=== PATIENT | male | born 1985 | race Caucasian/White ===

== ENCOUNTER 2018-09-12 00:49 | Inpatient (IN) ==
[2018-09-12] MEDS ORDERED: PROTONIX IV ONE (01:12)
[2018-09-12] MEDS ORDERED: SODIUM CHLORIDE 0.9% INJ ONE (01:12)
[2018-09-12] MEDS ORDERED: ZOFRAN IV ONE (01:12)
[2018-09-12 01:46] LABS: BASO# 0.06 X1000 (0.0-0.2); BASO% 1.2 % (0.0-0.8); EOS# 0.27 X1000 (0.0-0.7); EOS% 5.5 % (0.0-10.0); HEMATOCRIT 50.3 % (42.0-52.0); HEMOGLOBIN 16.2 g/dL (14.0-18.0); LYMPH# 1.13 X1000 (1.2-3.4); MCHC 32.2 g/dL (33-37); MCV 90.1 FL (81-99); MONO# 0.55 X1000 (0.11-0.59); MONO% 11.2 % (1.7-9.3); MPV 10.9 FL (7.4-10.4); NEUT% 59.1 % (42.2-75.2); PLT 199 X1000 (130-400); RBC 5.58 XMIL (4.7-6.1); RDW 13.1 % (11.5-14.5); WBC 4.91 X1000 (4.8-10.8)
[2018-09-12 01:55] LABS: INR 0.91
[2018-09-12 01:56] LABS: PTT 27.6 Seconds (22.3-41.8)
[2018-09-12 02:00] LABS: AGAP 10; ALB/GLOB RATIO 2.2; ALBUMIN 4.2 g/dL (3.5-5.0); ALKALINE PHOSPHATASE 72 U/L (32-122); BUN 11 mg/dL (8-22); CALCIUM 9.3 mg/dL (8.8-10.2); CHLORIDE 106 mmol/L (98-107); COSMO 282; CREATININE 0.6 mg/dL (0.7-1.2); ESTIMATED GFR > 60; GLUCOSE 91 mg/dL (70-104); GOT 49 U/L (10-34); GPT 58 U/L (10-44); POTASSIUM 4.4 mmol/L (3.5-5.1); SODIUM 142 mmol/L (136-145); TCO2 26 mmol/L (25-35); TOTAL BILIRUBIN 0.53 mg/dL (0.20-1.00); TOTAL PROTEIN 6.1 g/dL (6.3-8.3)
[2018-09-12] MEDS: NS 1,000 ML IV SCH ×3 (02:30→16:33)
--- NOTE | 2018-09-12 07:23 | EKG Report ---
Test Performed on : 09/12/2018 07:05:28 AM Test Reason : Syncope Blood Pressure : / mmHG Vent. Rate : 065 BPM Atrial Rate : 065 BPM P-R Int : 148 ms QRS Dur : 092 ms QT Int : 398 ms P-R-T Axes : -04 026 029 degrees QTc Int : 413 ms Normal sinus rhythm. Normal ECG No previous ECGs available Unconfirmed Result
--- NOTE | 2018-09-12 07:38 | Diag Imaging Result Doc PS360 ---
EXAM: CT ABD/PELVIS W/IV CONT ONLY INDICATION: RUQ pain TECHNIQUE: This exam was performed using automated exposure control, adjustment of mA or kV according to patient size, and/or use of iterative reconstruction technique. COMPARISON: None. FINDINGS: The gallbladder is contracted and is unremarkable, otherwise. The liver, spleen, pancreas, and adrenal glands are unremarkable. There is a punctate nonobstructive intrarenal stone on the right. The kidneys are essentially unremarkable, otherwise. There is no hydronephrosis. The urinary bladder is unremarkable. There is no evidence of appendicitis. The remainder of the GI tract is grossly unremarkable. No focal inflammatory changes, free abdominal gas, or free fluid is identified. The bony structures are intact. IMPRESSION: No evidence of acute pathology by CT. Electronically signed by Kirit Weeks 09/12/2018 7:35 AM
[2018-09-12 07:39] LABS: MAGNESIUM 2.1 mg/dL (1.5-2.7)
--- NOTE | 2018-09-12 08:05 | HISTORY AND PHYSICAL ---
CHIEF COMPLAINT: Hematemesis and melena. HISTORY OF PRESENT ILLNESS: Mr. Brizuela is a 32-year-old male who presents to the ER tonight with reports of right upper quadrant pain with a 1 to 2-day history of hematemesis and melena. The patient states that he has been vomiting up what initially was emesis with a food appearance that did have some light-colored blood mixed in, though the patient now states that he has been having coffee-grounds emesis. He also reports that he has been having sharp intermittent right upper quadrant pain, and has been having now reports of dark black stools. He is currently incarcerated and is an inmate at [facility]. This evening, the patient was found by another inmate in the bathroom. One of the guards that responded to the patient is present at the bedside at this time, Officer Emma. He reported that the patient was completely unresponsive, and was confused once he did start to come back around. The patient does not have any recollection of the period before he was found unresponsive, and does have some confusion about what happened immediately after. At this time, he is alert and oriented to person, place, time, and situation, though he does seem slightly drowsy, and the patient states he feels like he is not his normal self and that he is drowsy, though he is denying any dizziness or headache. He denies any chest pain, shortness of breath, dysuria, or urinary frequency. The patient states he did have some hematuria though earlier today. He denies any pain, numbness, tingling, or swelling in extremities. Upon evaluation in the ER, the patient's hemoglobin and hematocrit are stable at this time. His chemistries were pretty unremarkable. He did have some slight elevation in his AST and ALT. CT abdomen and pelvis was performed, which did show that he had a moderate amount of stool in the colon, though other than this, there did not appear to be any acute findings. Also, the patient was just admitted and discharged from [facility]. It looks as though he was admitted on 09/04/2018 and was discharged on 09/05/2018. He did have a presenting complaint of left upper quadrant pain, with reports of nausea and vomiting bright red blood. He was admitted. He did undergo an EGD with Dr. Escobedo, and was noted to have findings of a Margo- Helm tear. It looked as though they did clip the tear. The patient was able to resume a regular diet, and was discharged with a month-long supply of Protonix 20 mg daily. The patient states that he had been doing well up until his symptoms started approximately 1 to 2 days ago as mentioned above. The patient denied any cftj-zil-[id number] use of nonsteroidal anti-inflammatories. REVIEW OF SYSTEMS: A 14-point review of systems was conducted with the patient, and all were negative, except for the pertinent positives mentioned in the above HPI. PAST MEDICAL HISTORY: Recent upper gastrointestinal bleed secondary to a Margo-Helm tear. PAST SURGICAL HISTORY: Other than his recent EGD, the patient denies any previous surgical history. SOCIAL HISTORY: The patient denies any tobacco, alcohol, or illicit drug use. At this time, he is currently incarcerated and is an inmate at [facility]. FAMILY HISTORY: The patient reports no significant family medical history. ALLERGIES: The patient has no known allergies. HOME MEDICATIONS: The patient denies any kfxx-psg-lqfbxuv or prescription medicines, other than his recently prescribed Protonix 20 mg daily p.o. that he received from [facility] upon discharge. LABORATORY AND DIAGNOSTIC DATA: White blood cell count is 4.91, hemoglobin 16.2, hematocrit 50.3, platelet count is 199,000. PT 13, INR 0.91, PTT is 27.6. Sodium 142, potassium 4.4, chloride 106, serum bicarb is 26, BUN 11, creatinine 0.6, glucose 91, calcium 9.3. Total bilirubin is 0.53, AST 49, ALT 58. CT abdomen and pelvis did show that the gallbladder was partially contracted. There was nonobstructive right renal stone. There was noted to be a moderate amount of stool in the colon, though other than this, there were no acute findings. This is per Radiology. Pending diagnostic studies at this time are a CT of the head without contrast, EKG, troponin, CK profile, magnesium, occult blood stool and non-feces, urinalysis, and urine drug screen. PHYSICAL EXAMINATION: VITAL SIGNS: Temperature 97.9 degrees, heart rate 66, respirations 16, blood pressure is 107/87, oxygen saturation is 98% on room air. GENERAL: Mr. Brizuela is a pleasant, 32-year-old, male, who was resting in the ER stretcher. He was in no acute distress. He was alert and oriented to person, place, time, and situation. He is able to answer questions appropriately. The patient did seem drowsy at times during my examination, though was easily arousable with verbal stimulation. HEENT: Head is atraumatic, normocephalic. Pupils are equal, round, reactive to light, and were 3 mm bilaterally and brisk. Oral mucosa is moist. Oropharynx is clear. NECK: Supple. Trachea midline. CARDIOVASCULAR: The patient has normal S1, S2. No murmurs, gallops, rubs appreciated with a regular rate and rhythm. PULMONARY: The patient has symmetrical chest expansion bilaterally. Lung sounds are clear to auscultation in bilateral full moreno. ABDOMEN: Soft, nondistended, though the patient does report tenderness upon palpation of his abdomen in the right upper quadrant area. Bowel sounds were present in all 4 quadrants and were normoactive. EXTREMITIES: No cyanosis, clubbing, or edema noted. Pulse, motor, and sensory were intact in all extremities. Radial pulses and pedal pulses were 2+ bilaterally. INTEGUMENTARY: The patient's skin is pink, warm, and dry. NEUROLOGICAL: The patient is alert and oriented to person, place, time, and situation. He is able to move all extremities. There are no focal neurological deficits noted. ASSESSMENT AND PLAN: 1. Gastrointestinal bleed. Given the patient's recent history of a Margo-Helm tear, we will place the patient nothing by mouth. We have placed him with Protonix 40 mg intravenously every 12 hours. We will repeat hemoglobin and hematocrit later on in the day. Will do frequent vital signs. We will continue with cardiac telemetry. At this time, the patient's vital signs are within normal limits and he is hemodynamically stable. We have placed a consult with Dr. Morales with Gastroenterology, and will await his evaluation and further recommendations for management. We have placed the records from [facility] on the patient's chart. They are available for viewing if needed. 2. Nausea and vomiting. We have placed some as needed antiemetics. We will continue with some gentle fluid hydration with normal saline at 125 mL/h. 3. Syncope. This may be related to the patient's gastrointestinal bleed. According to the officer who is at bedside with the patient, the patient was found unresponsive on the floor in the bathroom, and had vomited a large amount of bloody-appearing emesis that they were describing as coffee-ground with some maroonish color blood mixed in. The patient's vital signs are within normal limits, he is hemodynamically stable, and his hemoglobin hematocrit are stable at this time as well. It is unknown at this time if the patient hit his head. The patient does seem slightly drowsy, and he is reporting that he feels drowsy himself. We have placed orders for a CT head without contrast, as well as an electrocardiogram and cardiac enzymes. We will await those results and continue to follow. The patient, at this time, is not reporting any other neurological symptoms. He is able to move all extremities. He denies any numbness or tingling in extremities. 4. Deep vein thrombosis prophylaxis will be provided with sequential compression devices. The patient has been placed on the medical floor with telemetry. He will have vital signs every 4 hours. Will do strict intake and output. He will be nothing by mouth until evaluated by Gastroenterology. We are awaiting the results of several diagnostic studies as mentioned above. We will continue to follow. Further orders and recommendations pending hospital course, diagnostic studies, and physician evaluation. Dictated by MANISH Jimenez for Freeman Callahan MD cc: Freeman Callahan MD
--- NOTE | 2018-09-12 08:10 | Diag Imaging Result Doc PS360 ---
EXAM: CT HEAD W/O CONTRAST INDICATION: Syncope TECHNIQUE: This exam was performed using automated exposure control, adjustment of mA or kV according to patient size, and/or use of iterative reconstruction technique. COMPARISON: None. FINDINGS: There is no definite acute infarct given the limited sensitivity of CT versus MRI. There is no discrete intracranial mass, mass effect, or intracranial hemorrhage. The surrounding soft tissues and bony structures are essentially unremarkable. IMPRESSION: No evidence of acute intracranial pathology. Electronically signed by Kirit Weeks 09/12/2018 8:08 AM
[2018-09-12 12:09] LABS: URINE SOURCE CLEAN CATCH
[2018-09-12 12:33] LABS: UR AMPHETAMINES QUAL NONE DETECTED (NONE DETECT); UR BARBITUATES QUAL NONE DETECTED (NONE DETECT); UR BENZODIAZEPIN QUAL NONE DETECTED (NONE DETECT); UR CANNABINOIDS QUAL NONE DETECTED (NONE DETECT); UR COCAINE QUAL NONE DETECTED (NONE DETECT); UR METHADONE QUAL NONE DETECTED (NONE DETECT); UR OPIATES QUAL NONE DETECTED (NONE DETECT); UR OXYCODONE QUAL NONE DETECTED (NONE DETECT); UR PCP QUAL NONE DETECTED (NONE DETECT)
[2018-09-12 12:53] LABS: BILIRUBIN URINE NEGATIVE (NEGATIVE); BLOOD URINE NEGATIVE (NEGATIVE); COLOR STRAW; GLUCOSE URINE NEGATIVE (NEGATIVE); KETONE URINE NEGATIVE (NEGATIVE); LEUKOCYTES URINE NEGATIVE (NEGATIVE); NITRITE URINE NEGATIVE (NEGATIVE); PROTEIN URINE NEGATIVE (NEGATIVE); TURBIDITY URINE CLEAR (CLEAR); UROBILINOGEN URINE NORMAL (NORMAL)
[2018-09-12 12:54] LABS: UR EPITHELIAL CELLS <10 /HPF (<10); URINE BACTERIA NEGATIVE /HPF; URINE RBC <10 /HPF (<10); URINE WBC <10 /HPF (<10)
[2018-09-12 13:53] LABS: HEMATOCRIT 47.7 % (42.0-52.0); HEMOGLOBIN 15.3 g/dL (14.0-18.0)
[2018-09-12] MEDS: PROTONIX IV SCH (14:44)
[2018-09-12] MEDS: SODIUM CHLORIDE 0.9% INJ SCH (14:44)
--- NOTE | 2018-09-12 15:53 | GASTROENTEROLOGY CONSULTATION ---
DATE: 09/12/2018 REASON FOR CONSULTATION: Hematemesis. HISTORY OF PRESENT ILLNESS: Mr. Edwin Brizuela is a 32-year-old gentleman who is incarcerated and presented with episode of hematemesis. The patient reports waking up yesterday morning and feeling upset to his stomach. He says that he drank a Coke and subsequently started having vomiting that was initially nonbloody, nonbilious, and then became progressively red with coffee-grounds. He had a similar episode about a week ago, for which he was hospitalized in [facility]. There, he had a diagnostic EGD which was revealing for a Margo-Helm tear status post Endoclip. He was discharged on a 1-month supply of Protonix. The patient reports having reflux symptoms for which he does not take medications. He denies any dysphagia, abdominal pain, melena, hematochezia, change in bowel habits, family history of GI malignancies. He says that over the last week he has been taking ibuprofen once a day for chronic headaches. No other blood thinners. He denies any ingestions of foreign bodies. Per report, the patient had apparently a syncopal episode and was found by another inmate in the bathroom. REVIEW OF SYSTEMS: As per HPI, otherwise a 12 point review of systems is negative. PAST MEDICAL HISTORY: History of upper GI bleed from Margo-Helm tear. PAST SURGICAL HISTORY: None. SOCIAL HISTORY: No alcohol, smoking, or drug use at this time. He is currently incarcerated and is an inmate at [facility]. FAMILY HISTORY: No family history of GI malignancies or bleeding. ALLERGIES: No known drug allergies. HOME MEDICATIONS: Protonix, ibuprofen. DIAGNOSTIC STUDIES: White count of 4.9, hemoglobin of 16.2 that dropped to 15.3 with IV fluids, platelets of 199,000. INR of 0.91. Sodium 142, potassium 4.4, chloride of 106, bicarbonate 26, BUN 11, creatinine 0.6. LFTs notable for AST of 49, AST of 58, alkaline phosphatase 72. UA is negative. Urine toxicology is negative. CT of the abdomen and pelvis is normal. Head CT is also normal. PHYSICAL EXAMINATION: Vital Signs: Temperature 97.9 degrees, pulse 68, blood pressure 112/69, O2 saturation 99% on room air. General: The patient is awake, alert, oriented. No acute distress. HEENT: Sclerae anicteric. Moist mucous membranes. Extraocular motor intact. Neck: No JVD, no lymphadenopathy. Cardiac: Regular rate and rhythm. No murmurs, rubs, or gallops. Lungs: Clear to auscultation bilaterally. Abdomen: Soft, nontender, nondistended. Normoactive bowel sounds. No rebound or guarding. Extremities: No clubbing, cyanosis, or edema. Neurologic: Nonfocal. Cranial nerves 2 through 12 intact. ASSESSMENT AND PLAN: Mr. Edwin Brizuela is a 32-year-old gentleman with recent admission at outside hospital for upper gastrointestinal (GI) bleed secondary to Margo-Helm tear, who re- presents with hematemesis after episode of retching again. He also had a syncopal event from unclear etiology. His hemoglobin here is normal and has dropped from 16 to 15. Coagulation studies and platelets are within normal limits. He does admit to taking some non-steroidal antiinflammatory drugs (NSAIDs) recently, which may have aggravated his symptoms. At this time I recommend that we continue him on PPI which is currently IV twice daily. This can be transitioned to p.o. twice a day. Advance diet as tolerated. No indication for repeat EGD at this time. We will check hemoglobin and hematocrit in the morning. Avoid NSAIDs. Thank you for this consult. We will follow with you.
--- NOTE | 2018-09-12 16:45 | PROGRESS NOTE ---
DATE: 09/12/2018 The patient presents to the hospital because of hematemesis as well as melena. Vitals reasonably stable. Hematocrit is 50.3 at the time of his presentation. Plan is to maintain patient on PPI and get GI evaluation for GI endoscopic studies. cc: Delio Chicas MD
[2018-09-12] MEDS: ZOFRAN IV PRN (22:48)
[2018-09-13] MEDS: NORCO-7.5 PO PRN ×3 (01:41→21:53)
[2018-09-13] MEDS: SODIUM CHLORIDE 0.9% INJ SCH (01:41)
[2018-09-13] MEDS: PROTONIX IV SCH ×2 (01:41→15:34)
[2018-09-13] MEDS: NS 1,000 ML IV SCH ×3 (01:45→18:37)
[2018-09-13] MEDS: AUGMENTIN PO SCH ×3 (03:24→21:53)
[2018-09-13 06:51] LABS: BASO# 0.02 X1000 (0.0-0.2); BASO% 0.4 % (0.0-0.8); EOS# 0.22 X1000 (0.0-0.7); EOS% 4.3 % (0.0-10.0); HEMATOCRIT 49.2 % (42.0-52.0); HEMOGLOBIN 15.6 g/dL (14.0-18.0); LYMPH# 1.41 X1000 (1.2-3.4); LYMPH% 27.3 % (20.5-51.1); MCH 29.5 PG (27-31); MCHC 31.7 g/dL (33-37); MCV 93.2 FL (81-99); MONO# 0.61 X1000 (0.11-0.59); MONO% 11.8 % (1.7-9.3); MPV 10.8 FL (7.4-10.4); NEUT% 56.2 % (42.2-75.2); PLT 165 X1000 (130-400); RBC 5.28 XMIL (4.7-6.1); RDW 12.9 % (11.5-14.5); WBC 5.16 X1000 (4.8-10.8)
[2018-09-13 07:27] LABS: AGAP 8; BUN 11 mg/dL (8-22); CALCIUM 8.4 mg/dL (8.8-10.2); CHLORIDE 105 mmol/L (98-107); COSMO 285; CREATININE 0.8 mg/dL (0.7-1.2); ESTIMATED GFR > 60; GLUCOSE 112 mg/dL (70-104); POTASSIUM 3.9 mmol/L (3.5-5.1); SODIUM 143 mmol/L (136-145); TCO2 30 mmol/L (25-35)
[2018-09-13] MEDS ORDERED: ATIVAN IV ONE (12:55)
[2018-09-13] MEDS ORDERED: ATIVAN IV PRN (12:56)
[2018-09-13] MEDS ORDERED: DILANTIN 1,000 MG in NS 100 ML IV ONE (13:30)
--- NOTE | 2018-09-13 14:51 | Diag Imaging Result Doc PS360 ---
EXAM: CT HEAD W/O CONTRAST INDICATION: seizure TECHNIQUE: This exam was performed using automated exposure control, adjustment of mA or kV according to patient size, and/or use of iterative reconstruction technique. COMPARISON: 09/12/2018 FINDINGS: There is no definite acute infarct given the limited sensitivity of CT versus MRI. There is no discrete intracranial mass, mass effect, or intracranial hemorrhage. The surrounding soft tissues and bony structures are essentially unremarkable. IMPRESSION: No evidence of acute intracranial pathology. Electronically signed by Kirit Weeks 09/13/2018 2:48 PM
--- NOTE | 2018-09-13 14:54 | CONSULTATION ---
DATE OF CONSULTATION: 09/13/2018 He is in the emergency department, bed #6. Mr. Brizuela is 32 years old and he had a recent episode raising question of seizure or other neurologic event. Firsthand history from patient to me now is that he has no recollection of these events. He reports being in hospital bed upstairs and next realizing he was in the emergency room sometime later. He reports no previous history of seizure, stroke, concussion, brain injury. He reports falling and striking his head on the floor, associated with lightheadedness around the time he initially presented with melena and hematemesis a day or two ago. He reports no family history of seizure. He denies ethanol use. He denies illicit drug use. After the episode, he received lorazepam 2 mg IV once and phenytoin 1000 mg IV. Workup this admission includes noncontrast CT of the head done yesterday showing no abnormality. Lab is unremarkable except for mildly elevated AST and ALT. Urine drug screen was all negative yesterday. He has been afebrile. Heart rate has ranged 60s to 90s. Systolic blood pressures have ranged 100s to 120s. On exam, Mr. Brizuela is awake, alert, attentive. He seems appropriate now. Speech is not dysarthric. Language function is intact. Head and neck are unremarkable. There is no meningismus. There is no evidence of tongue bruising or biting. Visual moreno are full tested by confrontational finger counting. Extraocular movements are full. Facial motility is normal and symmetric. Gag is intact. Tongue is midline. He can hear. Shoulder shrug is equal. Strength is normal in the arms and legs. Tone is symmetric in the limbs. He did well on kvnvdt-nv-gukl testing bilaterally. He reports equal pinprick appreciation on brief testing over the limbs. I did not test his gait. IMPRESSION: Recent episode, uncertain explanation. By report, the postictal state was brief and minimal. The rigidity, as described by witnesses, was not completely typical of a true tonic seizure. If this was a seizure, explanation is not clear. I do not see any obvious toxic, withdrawal, or metabolic explanation for seizure. Seizure might occur early in the course of recovery from head injury but the head injury described does not seem sufficient to be worrisome for acute seizure. PLAN: I will order EEG and follow with you. I do not have any urgent suggestion. If he is otherwise ready for discharge, I can see him as an outpatient in the office soon. Thanks for asking neurology to see Mr. Brizuela. cc: MD NELLY Ley III
--- NOTE | 2018-09-13 14:56 | DISCHARGE SUMMARY ---
ADMISSION DATE: 09/12/2018 DISCHARGE DATE: 09/13/2018 PRINCIPAL DIAGNOSIS: Gastrointestinal bleed, probably secondary to Margo-Helm tear. SECONDARY DIAGNOSIS: Abnormal liver function test. CONSULTATIONS DONE DURING THIS HOSPITAL STAY: Dr. Emir Low. Gastroenterology. PROCEDURES DONE DURING THIS HOSPITAL STAY: 1. Abdominal pelvic CT 09/12/2018. 2. Head CT 09/12/2018. HOSPITAL COURSE: Mr. Edwin Brizuela is a 32 -year-old male who presented to the hospital because of right upper quadrant abdominal pain for about 1 to 2 days with a 1 to 2 -day history of hematemesis as well as melena. The patient was seen by the GI team. Apparently patient had been diagnosed with a Margo-Helm tear previously. The GI team did not feel compelled to repeat another EGD at this time. The patient remained stable while in the hospital. His hematocrit actually improved from 47.7 to 49.2. At his time patient can be discharged back. PHYSICAL EXAMINATION: Vital signs today: Temperature 98 degrees, pulse 75, respiratory rate 20, blood pressure 122/73, oxygen 99%. HEENT: Atraumatic, normocephalic. Cardiovascular: S1, S2. Respiratory system: Has evidence of good air entry bilaterally. Abdomen: Soft, nontender. No masses. Extremities: No evidence of edema. Central nervous system: No obvious focal deficit. PLAN: 1. Discharge back to correctional institution. 2. Take discharge medications as indicated. 3. The patient will be on omeprazole 40 mg p.o. once a day. cc: Delio Chicas MD
--- NOTE | 2018-09-13 16:24 | PROVIDER PROGRESS NOTE ---
Progress Note SUBJECTIVE: No acute overnight events. Afebrile. No N/V, CP, SOB. Patient reports having some some bleeding from right ear. No headache, abdominal pain. Tolerating PO. No melena or rectal bleeding. OBJECTIVE: Last Vital Signs Temp 98.0 F 09/13/18 15:17 Pulse 104 H 09/13/18 15:17 Resp 16 09/13/18 15:17 BP 98/76 09/13/18 15:17 Pulse Ox 100 09/13/18 15:17 Height 5 ft 11 in Weight 196 lb GEN: awake, alert, NAD HEENT: anicteric, MMM CV: RRR, no murg PULM: CTAB ABD: soft NT/ND, NABS EXT: no cce NEURO: CNII-XII grossly intact LABS: 09/13/18 09/13/18 06:15 06:15 WBC 5.16 Hgb 15.6 Plt Count 165 Sodium 143 Potassium 3.9 Chloride 105 Carbon Dioxide 30 BUN 11 Creatinine 0.8 Glucose 112 H Calcium 8.4 L A/P: Mr. Edwin Brizuela is a 32-year-old gentleman with recent admission at outside hospital for upper gastrointestinal (GI) bleed secondary to Margo- Helm tear, who re- presented with hematemesis after episode of retching. He also had a syncopal event from unclear etiology. His hemoglobin here is normal and unchanged. His is tolerating diet without GI symptoms. # Hematemesis: hgb stable; continue PPI BID for 8-12 weeks; avoid NSAIDs/blood thinners # Syncope: unclear etiology; HCT negative; Utox neg; defer workup to primary team # Ear bleeding: reported ruptured eardrum per report; ear examined by overnight provider; defer to primary team # Mildly elevated LFTs on admission: recheck LFTs; CT A/P negative; obtain hepatitis panel Will sign off. Please call with questions or concerns.
[2018-09-14] MEDS: SODIUM CHLORIDE 0.9% INJ SCH (01:48)
[2018-09-14] MEDS: PROTONIX IV SCH ×2 (01:48→16:30)
[2018-09-14] MEDS: NORCO-7.5 PO PRN ×3 (04:06→19:42)
[2018-09-14] MEDS ORDERED: PRILOSEC PO SCH (07:00)
[2018-09-14] MEDS: NS 1,000 ML IV SCH ×3 (09:00→20:05)
[2018-09-14] MEDS: AUGMENTIN PO SCH ×3 (09:00→20:05)
[2018-09-14] MEDS: ZOFRAN IV PRN (09:13)
--- NOTE | 2018-09-14 10:00 | PROGRESS NOTE ---
DATE: 09/14/2018 Mr. Brizuela has not had any more episodes of seizure or seizure-like activity. He continues to complain of earache. We have EEG scheduled. Further plans will depend on that report. Officer present today was present and witnessed his episode yesterday. Firsthand description is rigidity and tremulousness but not definite clonic activity. As reported yesterday, postictal state was minimal. His posture during the episode was also not typical. I do not have any new thoughts right now. Further plans will depend on the EEG report. If this was a seizure, some features are atypical. Thanks for asking neurology to see Mr. Brizuela. cc: Narinder Cerda III, MD
[2018-09-14 13:21] LABS: HEPATITIS PROFILE ACUTE SEE COMMENTS
--- NOTE | 2018-09-14 14:44 | EKG Report ---
Test Performed on : 09/14/2018 2:38:59 PM Test Reason : increased heart rate Blood Pressure : / mmHG Vent. Rate : 138 BPM Atrial Rate : 138 BPM P-R Int : 140 ms QRS Dur : 080 ms QT Int : 286 ms P-R-T Axes : 063 019 042 degrees QTc Int : 433 ms Sinus tachycardia. Cannot rule out Anterior infarct , age undetermined Abnormal ECG When compared with ECG of 12-SEP-2018 07:05, Vent. rate has increased BY [address] no longer elevated in Inferior leads Unconfirmed Result
[2018-09-14] MEDS ORDERED: CARDIZEM 125/NS 125 MG/125 ML IVPB IV SCH (15:30)
--- NOTE | 2018-09-14 15:50 | PROGRESS NOTE ---
DATE: 09/14/2018 SUBJECTIVE: The patient resting in bed. Complains of some chest discomfort. OBJECTIVE: Vital Signs: As follows: Temperature is 98.1, pulse 79, respirations 18, blood pressure 126/76, oxygenation is 100%. HEENT: Atraumatic, normocephalic. Cardiovascular: S1, S2. Tachycardic. Respiratory: Good air entry bilaterally. Abdomen: Soft, nontender. No masses felt. Extremities: No evidence of edema. Central Nervous System: No obvious focal deficits noted. LABS: None today. ASSESSMENT AND PLAN: 1. Probable seizure disorder. Continue Dilantin 100 mg IV q.8 hours. Follow up on EEG report. Neurology is following. The patient may have pseudoseizures. 2. Tachyarrhythmia. Maintain patient on cardiac monitoring. Check cardiac enzymes as well as a D-dimer level. Place patient on rate controlling agents. Consult with Cardiology. 3. Bleeding from right ear. This may have been self-inflicted. ENT consulted. 4. Gastrointestinal bleed, stable. Follow up on hemoglobin, hematocrit. Maintain patient on PPI. Avoid nonsteroid anti-inflammatory drugs. 5. Hepatitis C virus infection. This has just been newly diagnosed. The patient will need to follow up with GI in the outpatient. cc: Delio Chicas MD
[2018-09-14 16:16] LABS: UR AMPHETAMINES QUAL NONE DETECTED (NONE DETECT); UR BARBITUATES QUAL NONE DETECTED (NONE DETECT); UR BENZODIAZEPIN QUAL NONE DETECTED (NONE DETECT); UR CANNABINOIDS QUAL NONE DETECTED (NONE DETECT); UR COCAINE QUAL NONE DETECTED (NONE DETECT); UR METHADONE QUAL NONE DETECTED (NONE DETECT); UR OPIATES QUAL NONE DETECTED (NONE DETECT); UR OXYCODONE QUAL NONE DETECTED (NONE DETECT); UR PCP QUAL NONE DETECTED (NONE DETECT)
[2018-09-14] MEDS: DILANTIN IV SCH ×2 (16:30→22:40)
--- NOTE | 2018-09-14 16:42 | PROVIDER DOCUMENTATION ---
This chart was entered by Teddy Lincoln Scribe, acting as scribe for Yakelin Vega MD. HPI-Abdominal Pain/GI Problem - General Source: patient - History of Present Illness-ABD Nature of Presenting Problems: Pt is a 32 y/o M presents to the ED from [place] stating he has been coughing up blood. Pt reports a hx of upper Gi bleeds. Abdominal Pain Onset Location: reports: generalized abdomen Pain Radiation: reports: no radiation Quality of Pain: reports: dull Severity in ED: reports: mild Onset/Duration: reports: 2 days ago Timing: reports: still present Activities at Onset: reports: none Exposure to sick contacts?: No Modifying Factors: improves with: nothing Associated Symptoms: reports: cough. denies: diarrhea, fever/chills, sinus congestion/drainage, shortness of breath, vomiting, trouble walking <Yakelin Vega - Last Filed: 09/12/18 02:10> <Edgardo Hinkle - Last Filed: 09/12/18 03:54> - General Stated Complaint: GI BLEED Time Seen by Provider: 09/12/18 01:10 Review of Systems - Adult - REVIEW OF SYSTEMS - ADULT Constitutional: denies: chills, fever Eyes: reports: no symptoms reported Ears, Nose, Mouth & Throat: reports: no symptoms reported Cardiovascular: reports: no symptoms reported Respiratory: reports: cough. denies: shortness of breath, wheezing Gastrointestinal: reports: abdominal pain. denies: constipation, nausea, rectal bleeding, vomiting Genitourinary: denies: dysuria, discharge Musculoskeletal: denies: back pain, neck pain Integumentary: reports: no symptoms reported Neurological: denies: dizziness/vertigo, headache/migraines Psychiatric: reports: no symptoms reported Endocrine: reports: no symptoms reported Hematologic/Lymphatic: reports: no symptoms reported Allergic/Immunologic: reports: no symptoms reported All Other Systems: Reviewed and Negative <Yakelin Vega - Last Filed: 09/12/18 02:10> Past History - Adult - PAST MEDICAL HISTORY-ADULT Review of Records: reports: Old Records Reviewed, Nursing Assessment Review, Medications Reviewed - SOCIAL HISTORY Living Situation: other <Yakelin Vega - Last Filed: 09/12/18 02:10> Physical Exam-General - PHYSICAL EXAM-ADULT Initial Vital Signs Reviewed: Yes - CONSTITUTIONAL General Appearance: alert, no apparent distress - EYES Eyes: PERRL/EOMI, pink conjunctivae - HEAD, EARS, NOSE, MOUTH & THROAT HENMT: moist mucous membranes, normal ENT inspection, pharynx normal - NECK Neck: non-tender, full range of motion, supple, normal inspection - RESPIRATORY Respiratory: chest non-tender, lungs clear, normal breath sounds, no pleuratic chest pain, no respiratory distress - CARDIOVASCULAR Cardiovascular: normal peripheral pulses, regular rate, rhythm - GASTROINTESTINAL (ABDOMEN) Abdominal Exam: normal bowel sounds, soft, McBurney's point tenderness. negative: distended - MUSCULOSKELETAL Back Exam: normal inspection, no CVA tenderness, no vertebral tenderness Extremity: normal range of motion, non-tender, normal gait, normal inspection - SKIN Integumentary: normal color, normal turgor, warm/dry - NEUROLOGIC Neurologic: grossly normal, no motor/sensory deficits - PSYCHIATRIC Psych/Mental Status: normal mood/affect, normal thought content, normal thought process, oriented x 3 <Yakelin Vega - Last Filed: 09/12/18 02:10> Progress - PLAN OF CARE/RESULTS Progress/Plan/Lab Results: Orders Category Date Time Status CBC WITH ELECTRONIC DIFF [HEME] Stat Lab 09/12/18 01:11 Uncollected COMPREHENSIVE METABOLIC PANEL [CHEM] Stat Lab 09/12/18 01:11 Uncollected OCCULT BLOOD NON-FECES Stat Lab 09/12/18 01:11 Uncollected OCCULT BLOOD SCREENING [STOOL] Stat Lab 09/12/18 01:12 Uncollected PROTIME WITH INR [COAG] Stat Lab 09/12/18 01:11 Uncollected PTT [COAG] Stat Lab 09/12/18 01:11 Uncollected TYPE & SCREEN [BBK] Stat Lab 09/12/18 01:11 Uncollected 0.9% Sodium Chloride Inj [Ns] 1,000 ml Med 09/12/18 01:15 Active IV 125 mls/hr Ondansetron [Zofran] Med 09/12/18 01:12 Discontinued 4 mg IV NOW ONE Pantoprazole [Protonix] Med 09/12/18 01:12 Discontinued 40 mg IV NOW ONE Sodium Chloride 0.9% Med 09/12/18 01:12 Discontinued 10 ml INJ NOW ONE GI Bleed (possible) Stat Oth 09/12/18 01:11 Ordered Result Diagrams: 09/12/18 01:02 09/12/18 01:02 - CHANGE OF SHIFT REPORT (ED Provider) 1 Report Given and Care Transferred to:: Dr. Hinkle Items Pending: CT/MRI Results <Yakelin Vega - Last Filed: 09/12/18 02:10> - PLAN OF CARE/RESULTS Progress/Plan/Lab Results: Vital Signs - 8 hr 09/12/18 00:55 Temperature 97.9 F Pulse Rate 66 Respiratory Rate 16 Blood Pressure 107/87 O2 Sat by Pulse Oximetry 98 Laboratory Results - last 24 hr 09/12/18 09/12/18 09/12/18 01:02 01:02 01:02 WBC 4.91 RBC 5.58 Hgb 16.2 Hct 50.3 MCV 90.1 MCH 29.0 MCHC 32.2 L RDW Std Deviation 13.1 Plt Count 199 MPV 10.9 H Immature Gran % (Auto) 0.0 Neut % (Auto) 59.1 Lymph % (Auto) 23.0 Dale % (Auto) 11.2 H Eos % (Auto) 5.5 Baso % (Auto) 1.2 H Immature Gran # (Auto) 0.00 Neut # (Auto) 2.90 Lymph # (Auto) 1.13 L Dale # (Auto) 0.55 Eos # (Auto) 0.27 Baso # (Auto) 0.06 PT 13.0 INR 0.91 PTT (Actin FS) 27.6 Sodium 142 Potassium 4.4 Chloride 106 Carbon Dioxide 26 Anion Gap 10 BUN 11 Creatinine 0.6 L Estimated GFR/1.73 m2 > 60 BUN/Creatinine Ratio 18 Glucose 91 Calculated Osmolality 282 Calcium 9.3 Total Bilirubin 0.53 AST 49 H ALT 58 H Alkaline Phosphatase 72 Total Protein 6.1 L Albumin 4.2 Globulin 1.9 Albumin/Globulin Ratio 2.2 Blood Type Antibody Screen 09/12/18 01:02 WBC RBC Hgb Hct MCV MCH MCHC RDW Std Deviation Plt Count MPV Immature Gran % (Auto) Neut % (Auto) Lymph % (Auto) Dale % (Auto) Eos % (Auto) Baso % (Auto) Immature Gran # (Auto) Neut # (Auto) Lymph # (Auto) Dale # (Auto) Eos # (Auto) Baso # (Auto) PT INR PTT (Actin FS) Sodium Potassium Chloride Carbon Dioxide Anion Gap BUN Creatinine Estimated GFR/1.73 m2 BUN/Creatinine Ratio Glucose Calculated Osmolality Calcium Total Bilirubin AST ALT Alkaline Phosphatase Total Protein Albumin Globulin Albumin/Globulin Ratio Blood Type O POSITIVE Antibody Screen NEGATIVE Orders Category Date Time Status CT ABD/PELVIS W/IV CONT ONLY [CT] Stat Exams 09/12/18 02:03 Taken CBC WITH ELECTRONIC DIFF [HEME] Stat Lab 09/12/18 01:02 Completed COMPREHENSIVE METABOLIC PANEL [CHEM] Stat Lab 09/12/18 01:02 Completed OCCULT BLOOD NON-FECES Stat Lab 09/12/18 01:11 Uncollected OCCULT BLOOD SCREENING [STOOL] Stat Lab 09/12/18 01:12 Uncollected PROTIME WITH INR [COAG] Stat Lab 09/12/18 01:02 Completed PTT [COAG] Stat Lab 09/12/18 01:02 Completed TYPE & SCREEN [BBK] Stat Lab 09/12/18 01:02 Completed 0.9% Sodium Chloride Inj [Ns] 1,000 ml Med 09/12/18 01:15 Active IV 125 mls/hr Ondansetron [Zofran] Med 09/12/18 01:12 Discontinued 4 mg IV NOW ONE Pantoprazole [Protonix] Med 09/12/18 01:12 Discontinued 40 mg IV NOW ONE Sodium Chloride 0.9% Med 09/12/18 01:12 Discontinued 10 ml INJ NOW ONE GI Bleed (possible) Stat Oth 09/12/18 01:11 Ordered Pt signed out to me by Dr. Vega, CT negative, workup negative, pt has had several episodes of hematemesis, had an endoscopy last week and found to have esophageal tear, pt to be admitted for repeat endoscopy Result Diagrams: 09/12/18 01:02 09/12/18 01:02 <Edgardo Hinkle - Last Filed: 09/12/18 03:54> Departure - Departure Date of Disposition Decision: 09/12/18 Certified Medical Emergency: Emergent - Critical Care Note This patient required my direct & personal management of CC.: No <Yakelin Vega - Last Filed: 09/12/18 02:10> - Departure Time of Disposition Decision: 03:53 Certified Medical Emergency: Emergent - Critical Care Note This patient required my direct & personal management of CC.: No <Green,Edgardo R. - Last Filed: 09/12/18 03:54> - Departure DIAGNOSIS: Hematemesis Qualifiers: Nausea presence: with nausea Qualified Code(s): K92.0 - Hematemesis Disposition: ADMITTED INPATIENT 09 Condition: Stable Referrals and Follow-Ups: None,PCP [Primary Care Provider] - Attestation - Physician/ BRIANA Attestation Patient care was provided by Advanced Practice Provider:: No The physician spent face to face time with patient:: Yes Advanced Practice Provider documentation review:: Supervising physician onsite and consulted in the evaluation and care of this patient. The physician did have a face to face encounter with the patient. <Yakelin Vega - Last Filed: 09/12/18 02:10> - Physician/ BRIANA Attestation Patient care was provided by Advanced Practice Provider:: No The physician spent face to face time with patient:: Yes Advanced Practice Provider documentation review:: Supervising physician onsite and consulted in the evaluation and care of this patient. The physician did have a face to face encounter with the patient. <Edgardo Hinkle. - Last Filed: 09/12/18 03:54> This chart was documented by the indicated scribe, (Teddy Lincoln Scribe) and accurately reflects the services I performed and decisions made by me, Yakelin Vega MD, as attested by the provider's signature.
--- NOTE | 2018-09-14 21:01 | CONSULTATION ---
DATE OF CONSULTATION: 09/14/2018 IMPRESSION: 1. Episodes of tachycardia with telemetry showing sinus tachycardia. 2. Recent episode of possible seizure. 3. Recurrent upper gastrointestinal blood loss with hematemesis, precipitating admission. Recent Margo-Helm tear. RECOMMENDATIONS: 1. Echocardiography. 2. Continue to observe on telemetry. 3. Would not initiate IV diltiazem but merely continue to observe rhythm. 4. Brain imaging study with MRI. HISTORY OF PRESENT ILLNESS: This 32-year-old white male with no prior medical history, was admitted to the emergency room with recurrent upper GI blood loss and hematemesis. He had a Margo-Helm tear in the last few weeks and was hospitalized. He had hematemesis on medication. His hematocrit has been stable. While hospitalized, he has been observed to have loss of responsiveness and an episode of what might have been a seizure, given his rigidity during the episode. He has also been observed on telemetry to demonstrate episodes of tachycardia with monitor showing sinus tachycardia. There have been no arrhythmias. He has been fairly healthy and quite physically active. He served in the [employer]. He is currently incarcerated but is due to be getting out in the next week. There is no history of any significant head injury. He has no angina or shortness of breath. He is not aware of the episodes he had. There is no prior history of syncope or cardiac problems. PAST MEDICAL HISTORY: 1. Recent Margo-Helm tear. 2. Negative for hypertension, diabetes, or hypercholesterolemia. PAST SURGICAL HISTORY: Negative. ALLERGIES: He has no known drug allergies. MEDICATIONS: He was on no medications other than Protonix prior to admission. SOCIAL HISTORY: He previously served in the [employer]. He is currently incarcerated but is due to be released in the next week. He has been getting on [place] work release. He does not smoke or use alcohol. He denies illicit drug use. FAMILY HISTORY: Negative for premature coronary disease. REVIEW OF SYSTEMS: Pulmonary: Negative. Gastrointestinal: Noncontributory beyond History of Present Illness. Constitutional: Noncontributory beyond History of Present Illness. There has been no fever or chills. Remainder of review of systems negative/noncontributory beyond History of Present Illness, with 14 total systems reviewed. PHYSICAL EXAMINATION: General: This is a well-developed adult male in no distress on room air. Vital signs: Blood pressure 133/74, heart rate 79 and regular, oxygen saturation 100% on room air. HEENT: Extraocular movements intact. Mucous membranes moist. Neck: Supple, without jugular venous distention. There are no carotid bruits. Chest: Clear to auscultation. Cardiac Exam: Reveals a regular rate and rhythm without appreciable murmur or gallop. Abdomen: Soft. Bowel sounds are normal. Extremities: Without edema. Neurologic Exam: Reveals him to be alert and fully oriented. Speech is fluent. Moves all 4 extremities equally well. Skin: Warm, dry. Psychiatric Exam: Reveals mood to be appropriate. ELECTROCARDIOGRAM: A 12-lead electrocardiogram demonstrates sinus tachycardia, otherwise within normal limits. LABORATORY DATA: Includes a white blood cell count of 5.16, hematocrit 49.2, hemoglobin 15.6, platelet count 165,000. D-dimer less than 0.27. Sodium 143, potassium 3.9, chloride 105, carbon dioxide 30, BUN 11, creatinine 0.8, glucose 112. Initial troponin less than 0.01, followup troponin less than 0.01. CPK 109, followup CPK 63. Urine drug screen negative. Magnesium 2.1. cc: Jeet Luke MD
[2018-09-15] MEDS: PROTONIX IV SCH ×3 (01:07→14:57)
[2018-09-15] MEDS: NORCO-7.5 PO PRN ×4 (01:07→19:31)
[2018-09-15] MEDS: NS 1,000 ML IV SCH ×2 (04:14→14:57)
[2018-09-15] MEDS: DILANTIN IV SCH (06:10)
--- NOTE | 2018-09-15 08:56 | Diag Imaging Result Doc PS360 ---
EXAM: MRA BRAIN W/O CONTRAST 09/14/2018 HISTORY: new seizure disorder TECHNIQUE: 3-D [id number] COMMENT: There is no evidence of aneurysm or major branch occlusion. Both posterior communicating arteries are well demonstrated. No other definite vascular abnormality is present. IMPRESSION: Normal MRA of the brain. Electronically signed by Vivek Quintana 09/15/2018 8:54 AM
--- NOTE | 2018-09-15 09:48 | EEG REPORT ---
DATE: 09/13/2018 COMMENT: This is a digitally recorded EEG on a 32-year-old patient with recent episodes and question of seizure. By report, he had an episode of generalized jerking approximately 20 minutes prior to initiation of this EEG. FINDINGS: The initial record shows normal waking EEG. There is medium and higher amplitude 10 Hz posterior rhythm present symmetrically, reacting normally to eye opening. Background contains polymorphic and rhythmic theta frequencies at low frequency across the frontal and central regions symmetrically. Later, drowsing occurred with attenuation of the posterior rhythm and appearance of more generalized slowing. Stage 2 sleep was not recorded. Photic stimulation produced some symmetric entrainment. No definite epileptiform discharge was identified. The EEG at the end of the record, 23 minutes after beginning, was the same as at the beginning. INTERPRETATION: Normal EEG. CORRELATION: The absence of epileptiform discharges on a single EEG does not exclude a clinical diagnosis of seizures. While not impossible for EEG to recover to normal 20 minutes after generalized convulsion, that finding would be highly unlikely. Further, the lack of oil changer more than 20 minutes of recording would not be typical of EEG beginning 20 minutes after seizure. cc: Narinder Cerda III, MD
[2018-09-15] MEDS: AUGMENTIN PO SCH ×3 (10:32→23:45)
--- NOTE | 2018-09-15 12:12 | PROGRESS NOTE ---
DATE: 09/15/2018 SUBJECTIVE: Mr. Brizuela had an episode just before EEG yesterday. EEG started about 20 minutes after the episode and was completely normal. There was no epileptiform discharge or other evidence of tendency to seizure. He has not had any more episodes. Today, he told me that he had a sense of numbness in the left arm after the 1st episode a few days ago and he had a sense of numbness or weakness in the right arm after the 2nd episode. He confirmed history that he has not recently stopped any medication and there is no history of benzodiazepine use, ethanol abuse, illicit drug use. There is no prior history of seizure. OBJECTIVE: On exam, he is awake, alert, attentive and appropriate. He is oriented. Speech is not dysarthric. Language function is intact on bedside testing. Memory continues good. Head and neck are unremarkable. Visual moreno are full. Strength is good in the arms and legs. I do not see any definite tonal asymmetry. He did rapid alternating movements symmetrically with the left and right hand. He did well on [id number] testing bilaterally. I observed him standing and taking a few steps without apparent hemiparetic gait. IMPRESSION: Two episodes with question of seizure. There are some atypical features. I think it is reasonable to continue treating him presumptively for seizure with phenytoin, which is on board now. We can follow phenytoin levels. I will be glad to see him as an outpatient to consider tapering phenytoin. If he has episodes with more typical features, we might need a different AED. If he continues to have episodes with atypical features, we might consider further EEG and referral for seizure clinic opinion. Thanks for asking Neurology to see Mr. Brizuela. cc: MD NELLY Ley III
--- NOTE | 2018-09-15 14:32 | PROGRESS NOTE ---
DATE: 09/15/2018 SUBJECTIVE: The patient resting comfortably in bed. OBJECTIVE: Vital Signs: Vital signs are as follows: Temperature 97.7 degrees, pulse 59, respirations 18, blood pressure is 125/83, oxygenation 95%. HEENT: Atraumatic, normocephalic. Cardiovascular system: S1, S2. Respiratory system: Has evidence of good air entry bilaterally. Neck: Supple. There no masses. Abdomen: Soft, nontender. No masses. Extremities: No evidence of edema. Central nervous system: No obvious focal deficit noted. LABORATORY DATA: D-dimer level is less than 0.27. ASSESSMENT AND PLAN: 1. Probable seizures. Continue Dilantin 100 mg q. 8 hours with transition to oral agent. Neurology following. 2. Tachyarrhythmia. Heart rate seems to be within normal limits at this time. The patient is seen by the cardiology team. Observation recommended. 3. Bleeding from right ear. This may have been self-inflicted. Ears/nose/throat consulted. 4. Gastrointestinal bleed. Follow up on hemoglobin, hematocrit. Maintain patient on proton pump inhibitor. 5. Hepatitis C virus infection. This is a new diagnosis. This will need to be followed up in the outpatient by GI team. cc: Delio Chicas MD
[2018-09-15] MEDS: SODIUM CHLORIDE 0.9% INJ SCH (14:57)
[2018-09-15] MEDS: ZOFRAN IV PRN (15:24)
--- NOTE | 2018-09-15 15:37 | EKG Report ---
Test Performed on : 09/15/2018 3:30:16 PM Test Reason : Diffifculty breathing Blood Pressure : / mmHG Vent. Rate : 099 BPM Atrial Rate : 099 BPM P-R Int : 144 ms QRS Dur : 090 ms QT Int : 332 ms P-R-T Axes : 047 012 024 degrees QTc Int : 426 ms Normal sinus rhythm. Normal ECG When compared with ECG of 14-SEP-2018 14:38, (Unconfirmed) No significant change was found Unconfirmed Result
[2018-09-15] MEDS: DILANTIN PO SCH (16:54)
[2018-09-15] MEDS: LOPRESSOR PO SCH (17:53)
--- NOTE | 2018-09-15 18:01 | PROGRESS NOTE ---
DATE: 09/15/2018 SUBJECTIVE: Patient continues without chest discomfort or shortness of breath. He has had no palpitations. OBJECTIVE: Vital Signs: Blood pressure 130/64, heart rate 97, oxygen saturation 98% on room air. ECG monitor shows sinus rhythm with episodes of sinus tachycardia. The patient gradually but briskly accelerates to heart rates over 150 beats per minute and then slows back down. Neck: There is no significant jugular venous distention. Chest: Clear to auscultation. Cardiac Exam: Reveals a regular rate and rhythm without appreciable murmur or gallop. Extremities: No evidence of peripheral edema. DIAGNOSTIC DATA: Echocardiography demonstrates normal left ventricular function and no significant valvular abnormality. LABORATORY DATA: Includes TSH 0.65, normal. IMPRESSION: Episodes of sinus tachycardia. It is not clear if episodes were precipitated by anxiety. Patient relates he does not feel anxious at all. Consideration given to possibly blunting his tachycardia with beta-adela even though the nature of his tachycardia tendency is benign. He [*]wished to try low-dose metoprolol for this purpose. RECOMMENDATIONS: 1. We will initiate metoprolol 25 mg p.o. b.i.d. 2. No further cardiovascular studies needed at this time. It is reasonable for him to be discharged soon. I will see further on as needed basis. cc: Jeet Luke MD
[2018-09-16] MEDS: NS 1,000 ML IV SCH ×2 (01:17→08:49)
[2018-09-16] MEDS: NORCO-7.5 PO PRN ×2 (01:17→08:57)
[2018-09-16 07:57] VITALS: BP 124/76
[2018-09-16] MEDS: LOPRESSOR PO SCH (08:49)
[2018-09-16] MEDS: DILANTIN PO SCH (08:49)
[2018-09-16] MEDS: AUGMENTIN PO SCH (08:49)
[2018-09-16] MEDS: PROTONIX IV SCH (08:49)
--- NOTE | 2018-09-16 16:05 | DISCHARGE SUMMARY ---
ADMISSION DATE: 09/12/2018 DISCHARGE DATE: 09/16/2018 ADMISSION DIAGNOSIS: 1. Gastrointestinal bleed with history of Margo-Helm tear. 2. Intractable nausea and vomiting. 3. Syncope. DISCHARGE DIAGNOSIS: 1. Probable seizures versus syncope. Neurology followed while he was here and he is to remain on Dilantin. 2. Tachyarrhythmia rate controlled. 3. Bleeding from right ear possibly self-inflicted. ENT was consulted over that. 4. Gastrointestinal bleed maintained on a proton pump inhibitor. 5. Newly diagnosed hepatitis C. CONSULTATIONS: 1. Gastroenterology, Emir Low MD. 2. Neurologist, Narinder Cerda III, MD. 3. Cardiology, Luis Orozco MD. 4. ENT, Dominic Driscoll MD. SURGERIES OR PROCEDURES: None. HOSPITAL COURSE: Mr. Edwin Brizuela is a 32-year-old male, who presents to the ER with right upper quadrant abdominal pain for 1-2 days with hematemesis and melena. He is incarcerated and an inmate at [facility]. Emesis was coffee-ground in color. The right upper quadrant pain was intermittent with sharp sensations and the stools were black. Apparently, he was found in the restroom by another inmate being unresponsive and confused upon waking up. By the time he made it to the emergency room, he was A and O x3, just drowsy. Given the reports, hemoglobin and hematocrit was checked, which was stable, and a CT of the abdomen and pelvis was performed which showed constipation, otherwise there were no other acute findings, and apparently prior to the admission here he was seen at [facility] with a Margo-Helm tear that they clipped via EGD at that time. There was denial of any blood thinners or NSAIDs and it was also noted he had mildly elevated AST, ALT on admit. This was tested given the elevation of it and his history, he was checked for hepatitis C, which was positive on this admission. For the gastrointestinal bleed, they made him n.p.o., put him on IV Protonix, consulted Gastroenterology, did serial hemoglobin and hematocrit. He got antiemetics for the nausea and vomiting along with IV fluid hydration. His vitals were stable. He was transferred to the Medical floor. There was an attempt to discharge him the day after admission as everything was just going to be treated medically but at 3:34 that day it was noted that there was possible seizure activity after he had returned from having a head CT, which he had because of unknown if he actually hit his head when he passed out at the correctional facility. So anyway, he was having a possible seizure on the way back, that is when he had a consultation from Dr. Cerda, who put him on Dilantin and we are going to keep him on Dilantin at discharge. Also noted that he apparently had some bleeding from his ear on the . He states he ate too fast, went to the bathroom, threw up, and his ear starting pouring blood, but had already stopped bleeding, but he got an ENT consult because of that. Then, he had a tachyarrhythmia on the cardiac rehabilitation program director with an elevated D-dimer so he was started on rate-controlling agents and Cardiology was consulted. So Cardiology recommended echocardiogram, to keep on telemetry. He did not want to initiate diltiazem but just to observe the rhythm, and he wanted to look at an MRI of the brain so that was performed and it was normal, and then another note it was says that there was actually 2 episodes of questionable seizure activity, so the patient was initiated on metoprolol 25 twice a day by Cardiology. There was no further need of intervention. Vitals are stable. No more seizure activity. No more GI bleeding, and he is appropriate for discharge back to the correctional facility. VITAL SIGNS: Temperature 98.2, heart rate 73, respiratory rate 15, blood pressure 124/76, O2 saturation 98% on room air. DISCHARGE LAB DATA: Labs from the , white blood cells 5000, hemoglobin 15, hematocrit 49, platelet count 165. D-dimer was less than 0.27, so he did not have an elevated D-dimer. Sodium 143, potassium 3.9, BUN 11, creatinine 0.8, glucose 112, calcium 8.4. CK 63, troponin less than 0.01. TSH 0.65. Urine drug screen negative. Hepatitis panel reactive to hepatitis C. Had stool performed for blood and it was negative. DISCHARGE DIET: Regular. DISCHARGE ACTIVITY: As tolerated. DISCHARGE MEDICATIONS: 1. Dilantin 100 mg p.o. t.i.d. 2. Lopressor 25 mg p.o. twice daily. 3. Prilosec 40 mg p.o. daily. DISCHARGE FOLLOWUP: Dr. Low and he will need to follow up with him in 2-3 weeks and then will add Dr. Creda and Dr. Luke, and he will need to follow up with Dr. Luke to find out the results of his echocardiogram as they have not been resulted while he is here. PERTINENT IMAGING: On the , abdominal and pelvic CT: No acute findings. Head CT: No acute findings. On the , another head CT: No acute findings. On the , brain MRA, which was normal. On the , an EEG, which was normal, normal EEG, no seizure. Echocardiogram results pending. On the , EKG sinus rhythm, 65. On the , EKG sinus tachycardia, 138, QTc was 433. EKG on the , normal sinus rhythm, rate 99, QTc 426. DISCHARGE INSTRUCTIONS: Monitor right ear for profuse bleeding, monitor for seizures, and report any type of gastrointestinal bleeding such as bright red blood via emesis or stool, black stools, or coffee-ground stools, then seek medical attention. Please follow up with physician. DISCHARGE DISPOSITION: Correctional facility. Dictated by MANISH Campos for Sarath Dawn MD cc: MANISH Campos
== END 2018-09-16 10:42 | DRG 370 ==
LOC: ED 00:49 → 3N 06:35 → OBSVTOIN 06:35 → INTOOBSV 06:35 → SUATTDRO 06:35 → EDIPHOLD 09-13 13:50 → 3S 09-13 20:05 → EDIPHOLD 09-13 20:31 → 3S 09-13 20:54
PROVIDERS: ATTEND Internal Medicine
CPT/HCPCS: 70450; 70544; 74177; 80048; 80053; 80074; 80101; 80301; 80307; 80324; 80345; 80346; 80353; 80358; 80361; 80365; 81001; 82270; 82550; 83735; 83992; 84443; 84484; 85014; 85018; 85025; 85379; 85610; 85730; 86850; 86900; 86901; 93005; 93010; 93306; 94761; 95816; 96374; 96375; 99285; A9270; C9113; G0431; G0434; G0479; G0480; J1165; J2060; J2405; J7030; Q9967; S0164